=== PATIENT | male | born 1975 | race Caucasian/White ===

== ENCOUNTER 2017-05-07 10:03 | Emergency (ER) | payer OTHER ==
[2017-05-07 10:09] VITALS: BP 128/86; PULSE 74; TEMP 98; BMI 26.6
[2017-05-07] MEDS ORDERED: ERYTHROMYCIN 0.5% OPHTHALMIC OINTMENT 3.5 GM TUBE ONE (10:33)
[2017-05-07] MEDS ORDERED: ERYTHROMYCIN 0.5% OPHTHALMIC OINTMENT 3.5 GM TUBE OS ONE (10:34)
--- NOTE | 2017-05-07 10:39 | PDOC ---
History of Present Illness - General Chief Complaint: Eye Problem Stated Complaint: EYE PROBLEM Time Seen by Provider: 05/07/17 10:29 History Source: Patient Exam Limitations: No Limitations - History of Present Illness Initial Comments: 05/07/17 10:34 swelling / reddness and pain to upper right lid. States gets styes frequently. No fevers, no purulent drainage, no visual changes. Timing/Duration: unsure Severity: mild Associated Symptoms: reports: denies symptoms Past History - Travel Traveled outside of the country in the last 30 days: No Close contact w/someone who was outside of country & ill: No - Past Medical History Allergies/Adverse Reactions: Allergies Allergy/AdvReac Type Severity Reaction Status Date / Time No Known Drug Allergies Allergy Verified 05/07/17 10:09 Home Medications: Ambulatory Orders Cyclobenzaprine HCl [Flexeril -] 10 mg PO TID PRN #21 tablet 04/25/16 Naproxen [Naprosyn -] 500 mg PO BID #14 tablet 04/25/16 - Psycho/Social/Smoking Cessation Hx Anxiety: No Suicidal Ideation: No Smoking History: Never smoked Have you smoked in the past 12 months: No If you are a former smoker, when did you quit?: 2YRS Information on smoking cessation initiated: No Hx Alcohol Use: Yes (SOCIALLY) Drug/Substance Use Hx: No Substance Use Type: Alcohol Review of Systems - Review of Systems Able to Perform ROS?: Yes Is the patient limited Pashto proficient: Yes Constitutional: Yes: Symptoms Reported, See HPI. No: Fever, Malaise HEENTM: Yes: Symptoms Reported, See HPI, Eye Pain (mild tenderness to upper right lid) Respiratory: Yes: Symptoms reported Integumentary: Yes: Symptoms Reported All Other Systems: Reviewed and Negative *Physical Exam - Vital Signs Last Vital Signs Temp Pulse Resp BP Pulse Ox 98 F 74 18 128/86 98 05/07/17 10:06 05/07/17 10:06 05/07/17 10:06 05/07/17 10:06 05/07/17 10:06 - Physical Exam General Appearance: Yes: Nourished, Appropriately Dressed. No: Apparent Distress HEENT: positive: LYNDSEY, Normal ENT Inspection, TMs Normal (bilateral cerumen impactions), Pharynx Normal, Other (swelling and tenderness to the inner upper aspect of the right lid, noted small ulceration/abscess under medial aspect of the lid, not pointing or draining.. Vision is within normal limits) Neck: positive: Supple. negative: Tender, Lymphadenopathy (R), Lymphadenopathy (L) Respiratory/Chest: positive: Lungs Clear, Normal Breath Sounds Cardiovascular: positive: Regular Rate Musculoskeletal: positive: Normal Inspection Extremity: positive: Normal Capillary Refill, Normal Inspection, Normal Range of Motion Integumentary: positive: Normal Color, Dry, Warm Neurologic: positive: butt welder II-XII NML intact, Fully Oriented, Alert, Normal Mood/ Affect, Normal Response, Motor Strength 02/17 Medical Decision Making - Medical Decision Making 05/07/17 17:38 *DC/Admit/Observation/Transfer Diagnosis at time of Disposition: Stye external Qualifiers: Laterality: right Eyelid: upper Qualified Code(s): H00.011 - Hordeolum externum right upper eyelid - Discharge Dispostion Disposition: HOME Condition at time of disposition: Stable Admit: No - Referrals Referrals: STAFF,NOT ON [Primary Care Provider] - - Patient Instructions Printed Discharge Instructions: DI for Blepharitis Additional Instructions: Rest, avoid rubbing eyes Hot soaks to eyelid as often as possible to bring infection to ahead and allow to drain Wash hands frequently Wash hands, use eye drops as directed, wash hands after use Use erythromycin ointment 2-3 times a day for relief, Followup with ophthalmology or private physician as needed
== END 2017-05-07 11:14 | disposition home or self-care (01) ==
LOC: JERFT 10:03
DX: H00.011 Hordeolum externum right upper eyelid (principal)
CPT/HCPCS: 99281-25

== ENCOUNTER 2021-05-20 19:38 | Emergency (ER) | payer OTHER ==
[2021-05-20 19:43] VITALS: BP 157/85; PULSE 76; TEMP 97.3; BMI 29.6
[2021-05-20] MEDS ORDERED: KETOROLAC TROMETHAMINE 30 MG/1 ML VIAL IM ONE (20:23)
[2021-05-20] MEDS ORDERED: LIDOCAINE 5% TOPICAL PATCH TP ONE (20:23)
[2021-05-20] MEDS ORDERED: KETOROLAC TROMETHAMINE 30 MG/1 ML VIAL ONE (20:49)
[2021-05-20] MEDS ORDERED: LIDOCAINE 5% TOPICAL PATCH ONE (20:49)
[2021-05-20] MEDS ORDERED: LIDOCAINE PATCH REMOVAL MC ONE (22:00)
== END 2021-05-20 20:55 | disposition home or self-care (01) ==
LOC: JERFT 19:38
PROC: 3E0233Z Introduction of Anti-inflammatory into Muscle, Percutaneous Approach (ICD-10-PCS; principal; 2021-05-20)
DX: M54.5 Low back pain (principal)
CPT/HCPCS: 99284-25